=== PATIENT | female | born 1940 | race Caucasian/White ===

== ENCOUNTER 2025-01-08 12:33 | Inpatient (IN) | payer MEDICARE ==
[~2025-01-08] VITALS: Ht 172.7 cm; Wt 95.5 kg
[2025-01-08 15:03] LABS: BASOPHILS % 0.2 % (0.0-2.0); EOSINOPHILS % 1.4 % (0.0-5.0); HEMATOCRIT. 38.2 % (36.0-48.0); HEMOGLOBIN. 12.5 g/dL (12.0-16.0); LYMPHOCYTES % 8.9 % (20.0-50.0); MEAN CORPUSCULAR HEMOGLOBIN 30.2 pg (28.0-32.0); MEAN CORPUSCULAR HGB CONC 32.7 g/dL (31.0-37.0); MEAN CORPUSCULAR VOLUME 92.3 fL (81.0-99.0); MEAN PLATELET VOLUME 10.1 fl (7.4-10.4); MONOCYTES % 8.1 % (2.0-8.0); NEUTROPHILS % 81.4 % (40.0-76.0); PLATELET 138 x1000/uL (130-400); RED BLOOD CELL COUNT 4.14 mill/uL (4.2-5.4); RED CELL DISTRIBUTION WIDTH 15.1 % (11.6-14.6); WHITE BLOOD COUNT 12.4 x1000/uL (4.5-11.0)
[2025-01-08 15:11] LABS: CHLORIDE 105 mEq/L (98-107); SODIUM 139 mEq/L (136-145)
[2025-01-08 15:12] LABS: CALCIUM 10.2 mg/dL (8.7-10.4); CARBON DIOXIDE 30 mEq/L (21-32)
[2025-01-08 15:16] LABS: D-DIMER 2.41 mg/L FEU (<0.50); INR 0.9; PARTIAL THROMBOPLASTIN TIME 26.2 sec (23.4-31.0); PROTHROMBIN TIME 10.2 sec (9.6-11.0)
[2025-01-08 15:17] LABS: GLUCOSE 114 mg/dL (70-105); TROPONIN I HIGH SENSITIVITY 9 ng/L (3.0-34); UREA NITROGEN BLOOD 29 mg/dL (9-23)
[2025-01-08 15:49] LABS: ETHANOL BLOOD < 10 mg/dL (<10)
[2025-01-08 16:18] LABS: INFLUENZA TYPE A Presumptive Negative (Pres. Neg.)
[2025-01-08 16:19] LABS: INFLUENZA TYPE B Presumptive Negative (Pres. Neg.)
[2025-01-08 17:26] LABS: CLARITY URINE CLEAR (CLEAR); COLOR URINE YELLOW (YELLOW); GLUCOSE URINE NEGATIVE (NEGATIVE); KETONES URINE NEGATIVE (NEGATIVE); LEUKOCYTE ESTERASE URINE NEGATIVE (NEGATIVE); NITRITE URINE POSITIVE (NEGATIVE); OCCULT BLOOD URINE NEGATIVE (NEGATIVE); PH URINE 5.5 (4.5-8.0); PROTEIN URINE NEGATIVE (NEGATIVE); SPECIFIC GRAVITY URINE 1.032 (1.005-1.030); UROBILINOGEN URINE 0.2 E.U./dL (0.2-1.0)
[2025-01-08 17:41] LABS: *AMPHETAMINES SCREEN URINE NEGATIVE (NEGATIVE); *BARBITURATES SCREEN URINE NEGATIVE (NEGATIVE); *BENZODIAZEPINES SCREEN URINE NEGATIVE (NEGATIVE); *COCAINE SCREEN URINE NEGATIVE (NEGATIVE)
[2025-01-08 17:42] LABS: CANNABINOID URINE SCREEN NEGATIVE (NEGATIVE); ECSTASY MDMA SCREEN URINE NEGATIVE (NEGATIVE); METHADONE URINE SCREEN NEGATIVE (NEGATIVE); OPIATES URINE SCREEN NEGATIVE (NEGATIVE); PHENCYCLIDINE URINE SCREEN NEGATIVE (NEGATIVE)
[2025-01-08 17:49] LABS: TROPONIN I HIGH SENSITIVITY 8 ng/L (3.0-34)
[2025-01-08 17:49] LABS: BACTERIA URINE 4+; RBC URINE 0-2 /hpf (0-2)
[2025-01-08 17:50] LABS: SQUAMOUS EPITHELIAL CELL URINE FEW /lpf (RARE/1+); WBC URINE 0-2 /hpf (0-2)
[2025-01-08] MEDS: FUROSEMIDE 40MG/4ML VIAL IVP NR (20:20)
[2025-01-08 20:43] LABS: T4 FREE 1.22 ng/dL (0.89-1.76); THYROID STIMULATING HORMONE 0.33 uIU/mL (0.55-4.78)
[2025-01-08 21:00] VITALS: BP 143/47; PULSE 71; RESP 19; TEMP 37; O2SAT 19
[2025-01-08] MEDS ORDERED: NITROGLYCERIN 0.4MG TABLET SL SL PRN (21:00)
[2025-01-08] MEDS ORDERED: MELATONIN 3MG TABLET PO PRN (21:00)
[2025-01-08] MEDS ORDERED: IPRATROPIUM/ALBUTEROL 0.5-3(2.5)MG/3ML NEB HHN PRN (21:00)
[2025-01-08] MEDS ORDERED: HYDRALAZINE 20MG/ML VIAL IV PRN (21:00)
[2025-01-08] MEDS ORDERED: GUAIFENESIN 200MG/10ML SUGAR FREE UDC PO PRN (21:15)
[2025-01-08] MEDS ORDERED: ONDANSETRON HCL 4MG/2ML INJ IV PRN (21:15)
[2025-01-08] MEDS ORDERED: DOCUSATE SODIUM 100MG CAPSULE PO PRN (21:15)
[2025-01-08] MEDS ORDERED: DEXTROSE 50% WATER 50ML SYRINGE IV PRN (22:00)
[2025-01-08] MEDS ORDERED: IOHEXOL-350 100 ML BOTTLE ONE (23:46)
[2025-01-08] MEDS: NITROFURANTOIN 100MG M/M CAPSULE PO SCH (23:55)
[2025-01-08] MEDS: ATORVASTATIN CALCIUM 40MG TABLET PO SCH (23:55)
[2025-01-08] MEDS: ACETAMINOPHEN 325MG TABLET PO PRN (23:59)
[2025-01-09] VITALS: BP 106/34; PULSE 66; RESP 19; TEMP 37; O2SAT 95
[2025-01-09] MEDS ORDERED: LOSA100T33 MT (00:20)
[2025-01-09] MEDS ORDERED: METO100T16 PO (00:20)
[2025-01-09] MEDS ORDERED: CYAN100T43 MT (00:20)
[2025-01-09] MEDS ORDERED: SPIR25TA6 MT (00:20)
[2025-01-09] MEDS ORDERED: VITA250012 PO (00:20)
[2025-01-09] MEDS ORDERED: ALLO300T2 MT (00:20)
[2025-01-09] MEDS ORDERED: SIMV-43 MT (00:20)
[2025-01-09] MEDS ORDERED: ASPI-1497 MT (00:20)
[2025-01-09] MEDS: IPRATROPIUM/ALBUTEROL 0.5-3(2.5)MG/3ML NEB HHN SCH (02:39)
[2025-01-09 04:00] VITALS: BP 111/46; PULSE 59; RESP 19; TEMP 36.6; O2SAT 97
[2025-01-09 06:52] LABS: CARBON DIOXIDE 29 mEq/L (21-32); CHLORIDE 100 mEq/L (98-107); POTASSIUM 3.9 mEq/L (3.5-5.1); SODIUM 140 mEq/L (136-145)
[2025-01-09 06:53] LABS: CALCIUM 9.8 mg/dL (8.7-10.4)
[2025-01-09 06:58] LABS: GLUCOSE 101 mg/dL (70-105)
[2025-01-09 06:59] LABS: LDL CHOLESTEROL 46 mg/dL (5-100); TRIGLYCERIDE 65 mg/dL (0-150); UREA NITROGEN BLOOD 28 mg/dL (9-23)
[2025-01-09 07:00] LABS: CHOLESTEROL 108 mg/dL (<200); HDL CHOLESTEROL 43 mg/dL (>65); PHOSPHORUS 3.1 mg/dL (2.5-4.9)
[2025-01-09] MEDS: BLOOD SUGAR DIAGNOSTIC STRIP TEST SCH (07:11)
[2025-01-09] MEDS: INSULIN LISPRO 100 UNITS/ML SUBCUT SCH (07:12)
[2025-01-09] MEDS: PANTOPRAZOLE 40MG DR TABLET PO SCH (07:14)
[2025-01-09 07:31] LABS: HEPATITIS B SURFACE ANTIGEN NEGATIVE (Negative)
[2025-01-09 07:52] LABS: HEPATITIS C AB NON REACTIVE (Neg) (Negative)
[2025-01-09 07:58] LABS: BASOPHILS % 0.4 % (0.0-2.0); EOSINOPHILS % 1.1 % (0.0-5.0); HEMATOCRIT. 37.3 % (36.0-48.0); HEMOGLOBIN. 12.4 g/dL (12.0-16.0); LYMPHOCYTES % 20.2 % (20.0-50.0); MEAN CORPUSCULAR HEMOGLOBIN 30.5 pg (28.0-32.0); MEAN CORPUSCULAR HGB CONC 33.1 g/dL (31.0-37.0); MEAN PLATELET VOLUME 10.4 fl (7.4-10.4); MONOCYTES % 12.9 % (2.0-8.0); NEUTROPHILS % 65.4 % (40.0-76.0); PLATELET 131 x1000/uL (130-400); RED BLOOD CELL COUNT 4.05 mill/uL (4.2-5.4); RED CELL DISTRIBUTION WIDTH 15.1 % (11.6-14.6); WHITE BLOOD COUNT 9.2 x1000/uL (4.5-11.0)
[2025-01-09 08:00] VITALS: BP 101/43; PULSE 81; RESP 18; TEMP 36.2; O2SAT 96
[2025-01-09] MEDS: LOSARTAN 100 MG TABLET PO SCH (09:00)
[2025-01-09] MEDS: FUROSEMIDE 40MG/4ML VIAL IV SCH (09:00)
[2025-01-09] MEDS: ENOXAPARIN 30MG/0.3ML SYR SUBCUT SCH (09:57)
[2025-01-09] MEDS: ASPIRIN 81MG TABLET PO SCH (09:58)
[2025-01-09] MEDS: SPIRONOLACTONE 25MG TABLET PO SCH (09:58)
[2025-01-09 12:00] VITALS: BP_SYST 100; BP_SYST 101; BP_DIAS 48; PULSE 65; RESP 16; RESP 18; TEMP 36.3; O2SAT 96
[2025-01-09] MEDS: FUROSEMIDE 40MG/4ML VIAL IVP NR (12:45)
[2025-01-09 16:00] VITALS: BP 103/51; PULSE 67; RESP 17; TEMP 36.5; O2SAT 98
[2025-01-09 20:00] VITALS: BP 111/45; PULSE 66; RESP 20; TEMP 35.9; O2SAT 94
[2025-01-10] VITALS (9 sets, daily range): BP systolic 95–114; BP diastolic 33–74; PULSE 76–97; RESP 18–22; TEMP 35.9–36.6; O2SAT 96–98
[2025-01-10] MEDS ORDERED: ENOXAPARIN 60MG/0.6ML SYR SUBCUT NR (10:45)
[2025-01-10 13:02] LABS: BASOPHILS % 0.4 % (0.0-2.0); EOSINOPHILS % 2.2 % (0.0-5.0); HEMATOCRIT. 41.3 % (36.0-48.0); HEMOGLOBIN. 13.6 g/dL (12.0-16.0); LYMPHOCYTES % 19.7 % (20.0-50.0); MEAN CORPUSCULAR HEMOGLOBIN 30.5 pg (28.0-32.0); MEAN CORPUSCULAR VOLUME 92.4 fL (81.0-99.0); MEAN PLATELET VOLUME 10.8 fl (7.4-10.4); NEUTROPHILS % 66.7 % (40.0-76.0); PLATELET 160 x1000/uL (130-400); RED BLOOD CELL COUNT 4.47 mill/uL (4.2-5.4); RED CELL DISTRIBUTION WIDTH 14.7 % (11.6-14.6); WHITE BLOOD COUNT 8.3 x1000/uL (4.5-11.0)
[2025-01-10 13:22] LABS: POTASSIUM 3.7 mEq/L (3.5-5.1)
[2025-01-10 13:23] LABS: CALCIUM 10.2 mg/dL (8.7-10.4)
[2025-01-10 13:28] LABS: CREATININE 1.3 mg/dL (0.6-1.0)
[2025-01-10] MEDS: ENOXAPARIN 100MG/ML SYR SUBCUT SCH (21:05)
[2025-01-11] VITALS: BP 103/58; PULSE 88; RESP 20; TEMP 36.2; O2SAT 97
[2025-01-11 04:00] VITALS: BP 145/88; PULSE 99; RESP 22; TEMP 35.9; O2SAT 97
[2025-01-11 07:35] LABS: CARBON DIOXIDE 30 mEq/L (21-32); CHLORIDE 100 mEq/L (98-107); POTASSIUM 5.1 mEq/L (3.5-5.1); SODIUM 139 mEq/L (136-145)
[2025-01-11 07:36] LABS: CALCIUM 10.1 mg/dL (8.7-10.4)
[2025-01-11 07:40] LABS: CREATININE 1.1 mg/dL (0.6-1.0); GLUCOSE 131 mg/dL (70-105)
[2025-01-11 07:41] LABS: UREA NITROGEN BLOOD 31 mg/dL (9-23)
[2025-01-11 07:43] LABS: PHOSPHORUS 3.4 mg/dL (2.5-4.9)
[2025-01-11 07:47] LABS: BASOPHILS % 0.3 % (0.0-2.0); EOSINOPHILS % 2.9 % (0.0-5.0); HEMOGLOBIN. 14.2 g/dL (12.0-16.0); LYMPHOCYTES % 19.9 % (20.0-50.0); MEAN CORPUSCULAR HEMOGLOBIN 29.7 pg (28.0-32.0); MEAN CORPUSCULAR HGB CONC 32.2 g/dL (31.0-37.0); MEAN CORPUSCULAR VOLUME 92.3 fL (81.0-99.0); MEAN PLATELET VOLUME 10.9 fl (7.4-10.4); MONOCYTES % 10.6 % (2.0-8.0); NEUTROPHILS % 66.3 % (40.0-76.0); PLATELET 172 x1000/uL (130-400); RED BLOOD CELL COUNT 4.77 mill/uL (4.2-5.4); RED CELL DISTRIBUTION WIDTH 15.3 % (11.6-14.6); WHITE BLOOD COUNT 9.2 x1000/uL (4.5-11.0)
[2025-01-11 08:00] VITALS: BP 131/68; PULSE 58; RESP 18; TEMP 36.4; O2SAT 98
[2025-01-11] MEDS: FUROSEMIDE 40MG TABLET PO SCH (08:53)
[2025-01-11] MEDS: MAGNESIUM OXIDE 400MG TABLET PO SCH (11:12)
[2025-01-11 12:00] VITALS: BP 98/56; PULSE 72; RESP 19; TEMP 36.8; O2SAT 99
[2025-01-11 13:39] VITALS: BP 98/56; PULSE 72; TEMP 98.3; O2SAT 99
== END 2025-01-11 14:15 | disposition home health service (06) | DRG 291 ==
LOC: ER 12:33 → EDBEDREQ 12:46 → EDBEDREQTM 18:17 → EDBEDREQ 18:17 → 6WST 20:45
PROVIDERS: ADMIT Hospitalist; ATTEND Hospitalist
DX: I11.0 Hypertensive heart disease with heart failure (principal); J96.01 Acute respiratory failure with hypoxia; N17.9 Acute kidney failure, unspecified; N39.0 Urinary tract infection, site not specified; E87.5 Hyperkalemia; I50.9 Heart failure, unspecified; I25.10 Atherosclerotic heart disease of native coronary artery without angina pectoris; Z20.822 Contact with and (suspected) exposure to COVID-19; E78.5 Hyperlipidemia, unspecified; N28.1 Cyst of kidney, acquired; K44.9 Diaphragmatic hernia without obstruction or gangrene; I49.3 Ventricular premature depolarization; I48.0 Paroxysmal atrial fibrillation; R73.9 Hyperglycemia, unspecified; M16.0 Bilateral primary osteoarthritis of hip; M17.0 Bilateral primary osteoarthritis of knee; Z88.0 Allergy status to penicillin; Z88.8 Allergy status to other drugs, medicaments and biological substances; Z79.899 Other long term (current) drug therapy; Z79.82 Long term (current) use of aspirin
CPT/HCPCS: 36415; 71045; 71275; 80048; 80061; 80305; 80320; 81003; 82962; 83036; 83605; 83735; 83880; 84100; 84145; 84439; 84443; 84481; 84484; 85025; 85379; 86705; 86850; 86900; 87340; 87426; 87804; 93005; 93306; 94640; 97166; 97530; 99285; J1650; J1940; Q9967; G0480